=== PATIENT | male | born 1950 ===

== ENCOUNTER 2020-05-09 09:12 | Inpatient (IN) | payer OTHER ==
[~2020-05-09] VITALS: Ht 180.3 cm; Wt 73.9 kg
[2020-05-09] MEDS ORDERED: FENOFIBRATE50 MG (09:27)
[2020-05-09] MEDS ORDERED: NOXIFOL-D32500 UNIT (09:27)
[2020-05-09] MEDS ORDERED: LIPITOR20 MG (09:27)
[2020-05-09] MEDS ORDERED: LOSARTAN POTASS50 MG (09:28)
[2020-05-09] MEDS ORDERED: TENORETIC 1001 EACH (09:29)
[2020-05-16] MEDS ORDERED: ISORDIL10 MG PO (17:04)
[2020-05-16] MEDS ORDERED: TOPROL XL25 M1 PO (17:04)
[2020-05-16] MEDS ORDERED: XARELTO20 MG PO (17:04)
[2020-05-16] MEDS ORDERED: LIPITOR40 MG PO (17:04)
[2020-05-16] MEDS ORDERED: XARELTO15 MG PO (17:04)
== END 2020-05-16 17:50 | disposition home or self-care (01) | DRG 175 ==
LOC: ER 09:12 → ICU-2 20:43 → MEDJ 05-13 09:30 → MEDI 05-15 11:34
PROVIDERS: ADMIT Internal Medicine; ATTEND Internal Medicine
PROC: BB24ZZZ Computerized Tomography (CT Scan) of Bilateral Lungs (ICD-10-PCS; principal; 2020-05-09)
PROC: B246ZZZ Ultrasonography of Right and Left Heart (ICD-10-PCS; 2020-05-09)
PROC: 4A033R1 Measurement of Arterial Saturation, Peripheral, Percutaneous Approach (ICD-10-PCS; 2020-05-09)
PROC: 3E0F7GC Introduction of Other Therapeutic Substance into Respiratory Tract, Via Natural or Artificial Opening (ICD-10-PCS; 2020-05-09)
PROC: B54DZZZ Ultrasonography of Bilateral Lower Extremity Veins (ICD-10-PCS; 2020-05-10)
DX: I26.99 Other pulmonary embolism without acute cor pulmonale (principal); I21.4 Non-ST elevation (NSTEMI) myocardial infarction; J18.9 Pneumonia, unspecified organism; N17.8 Other acute kidney failure; I10 Essential (primary) hypertension; E78.49 Other hyperlipidemia; F12.10 Cannabis abuse, uncomplicated; B34.9 Viral infection, unspecified; E87.6 Hypokalemia; I87.2 Venous insufficiency (chronic) (peripheral); R09.02 Hypoxemia; Z20.828 Contact with and (suspected) exposure to other viral communicable diseases; E11.9 Type 2 diabetes mellitus without complications

== ENCOUNTER 2021-01-09 11:11 | Emergency (ER) | payer OTHER ==
[~2021-01-09] VITALS: Ht 180.3 cm; Wt 72.6 kg
[~2021-01-09 11:11] MED LIST: FENOFIBRATE50 MG; ISORDIL10 MG PO; LIPITOR20 MG; LIPITOR40 MG PO; LOSARTAN POTASS50 MG; NOXIFOL-D32500 UNIT; TENORETIC 1001 EACH; TOPROL XL25 M1 PO; XARELTO15 MG PO; XARELTO20 MG PO
[2021-01-09] MEDS ORDERED: XARELTO10 M1 PO (11:29)
[2021-01-09] MEDS ORDERED: ZYRTEC10 M3 PO (15:07)
[2021-01-09] MEDS ORDERED: TESSALON PERLE100 M1 PO (15:07)
== END 2021-01-09 15:36 | disposition home or self-care (01) ==
LOC: ER 11:11
DX: B34.9 Viral infection, unspecified (principal); Z03.818 Encounter for observation for suspected exposure to other biological agents ruled out; R05 Cough; R09.81 Nasal congestion

== ENCOUNTER 2021-12-05 08:49 | Emergency (ER) | payer OTHER ==
[~2021-12-05] VITALS: Ht 177.8 cm; Wt 73.5 kg
[~2021-12-05 08:49] MED LIST changes: +TESSALON PERLE100 M1 PO; +XARELTO10 M1 PO; +ZYRTEC10 M3 PO
== END 2021-12-05 14:29 | disposition home or self-care (01) ==
LOC: ER 08:49
DX: F41.9 Anxiety disorder, unspecified (principal)

== ENCOUNTER 2022-02-14 07:10 | Outpatient (CLI) | payer OTHER | END 2022-02-14 07:16 | disposition home or self-care (01) | LOC: MRI 07:10 | DX: C71.0 Malignant neoplasm of cerebrum, except lobes and ventricles (principal) | CPT/HCPCS: 70553; Q9965; 70552 ==

== ENCOUNTER 2024-01-22 08:51 | Outpatient (CLI) | payer OTHER | END 2024-01-22 08:56 | disposition home or self-care (01) | LOC: RAD 08:51 | DX: I13.0 Hypertensive heart and chronic kidney disease with heart failure and stage 1 through stage 4 chronic kidney disease, or unspecified chronic kidney disease (principal) ==

== ENCOUNTER 2024-06-06 09:58 | Outpatient (CLI) | payer OTHER | END 2024-06-06 10:02 | disposition home or self-care (01) | LOC: TOM 09:58 | PROVIDERS: ATTEND Internal Medicine Gastroenterology | DX: K59.00 Constipation, unspecified (principal); R19.5 Other fecal abnormalities; Z79.01 Long term (current) use of anticoagulants ==

== ENCOUNTER 2024-11-02 09:32 | Outpatient (CLI) | payer OTHER | END 2024-11-02 10:00 | disposition home or self-care (01) | LOC: RAD 09:32 | DX: S60.551D Superficial foreign body of right hand, subsequent encounter (principal) ==

== ENCOUNTER 2025-05-22 09:23 | Outpatient (CLI) | payer OTHER | END 2025-05-22 09:30 | disposition home or self-care (01) | LOC: RAD 09:23 | PROVIDERS: ATTEND Family Medicine Adult Medicine | DX: S60.551D Superficial foreign body of right hand, subsequent encounter (principal) ==